=== PATIENT | male | born 1975 | race Caucasian/White ===

== ENCOUNTER 2022-03-11 07:47 | Emergency (ER) | payer BC ==
[~2022-03-11] VITALS: Ht 185.4 cm; Wt 145.4 kg
[2022-03-11] MEDS ORDERED: SODIUM CHLORIDE 0.9% 100 ML ONE (08:17)
[2022-03-11] MEDS ORDERED: IOHEXOL 350 MG/ML 100 ML VIAL ONE ×2 (08:17)
[2022-03-11 08:52] LABS: BASOPHILS % (AUTO) 0.2 % (0.0-2.0); EOSINOPHILS % (AUTO) 0.9 % (1.0-6.0); HEMATOCRIT 41.5 % (41-53); HEMOGLOBIN 13.8 g/dL (13.5-17.5); LYMPHOCYTES # (AUTO) 1.5 K/uL (1.0-4.8); LYMPHOCYTES % (AUTO) 20.5 % (22.0-44.0); MEAN CORPUSCULAR HEMOGLOBIN 28.9 pg (26.0-34.0); MEAN CORPUSCULAR HGB CONC 33.4 G/dL (31.0-37.0); MEAN CORPUSCULAR VOLUME 87 fL (80-100); MONOCYTES # (AUTO) 1.1 K/uL (0.1-1.0); MONOCYTES % (AUTO) 15.2 % (2.0-9.0); NEUTROPHILS # (AUTO) 4.8 K/uL (1.8-7.7); NEUTROPHILS % (AUTO) 63.2 % (40.0-70.0); PLATELET COUNT (AUTO) 302 K/uL (150-450); RED CELL DISTRIBUTION WIDTH 13.4 % (11.5-14.5)
[2022-03-11 09:02] LABS: ANION GAP 7 mmol/L (8-16); CALCIUM, TOTAL 8.5 mg/dL (8.8-10.5); CARBON DIOXIDE 29 mmol/L (22-29); CHLORIDE 104 mmol/L (98-107); CREATININE 0.99 mg/dL (0.60-1.30); GLUCOSE,RANDOM 133 mg/dL (70-110); POTASSIUM 3.6 mmol/L (3.5-5.1); SODIUM SERUM 140 mmol/L (136-145); UREA NITROGEN, BLOOD 13 mg/dL (7-18)
[2022-03-11 09:06] LABS: PROTHROMBIN TIME 10.4 SEC (9.4-11.6)
[2022-03-11 09:09] LABS: ALANINE AMINOTRANSFERASE 32 U/L (12-78); ALBUMIN 3.1 g/dL (3.4-5.0); ALKALINE PHOSPHATASE 87 U/L (46-116); ASPARTATE AMINOTRANSFERASE 14 U/L (15-37); BILIRUBIN,TOTAL 0.3 mg/dL (0.1-1.0); GLOMERULAR FILTR. RATE CALC > 60 mL/min (>60); TOTAL PROTEIN, SERUM 7.6 g/dL (6.4-8.2); URIC ACID 5.6 mg/dL (2.6-7.2)
[2022-03-11 10:34] LABS: APPEARANCE,URINE CLEAR (CLEAR); BILIRUBIN,URINE NEGATIVE (NEGATIVE); GLUCOSE, URINE (UA) NEGATIVE (NEGATIVE); KETONES,URINE NEGATIVE (NEGATIVE); LEUKOCYTE ESTERASE ,URINE NEGATIVE (NEGATIVE); NITRATE,URINE NEGATIVE (NEGATIVE); OCCULT BLOOD,URINE NEGATIVE (NEGATIVE); PH,URINE 6.5 (5.0-8.0); PROTEIN,URINE TRACE mg/dL (NEGATIVE); UROBILINOGEN,URINE <=1.0 mg/dL (<=1.0)
[2022-03-11 10:44] LABS: SPECIFIC GRAVITIY, URINE > 1.050 (1.003-1.030)
[2022-03-11 11:48] VITALS: BP 122/60
== END 2022-03-11 12:11 | disposition home or self-care (01) ==
LOC: EMS 07:52
DX: R10.31 Right lower quadrant pain (principal); M10.9 Gout, unspecified
CPT/HCPCS: 99285; 71250; 80053; 81003; 84550; 85025; 85610; 85730; 36415; 74177; Q9967; J7050